=== PATIENT | female | born 2000 | race Caucasian/White ===

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

== ENCOUNTER 2021-02-07 16:54 | Emergency (ER) | payer OTHER ==
[~2021-02-07] VITALS: Ht 157.5 cm; Wt 115.7 kg
[2021-02-07 17:26] VITALS: Ht 157.5 cm; Wt 115.7 kg
[2021-02-07 18:12] LABS: BASOPHIL % 0.8 % (0.2-1.3); PLATELET COUNT 205 x10^3mcL (179-408)
[2021-02-07 18:14] LABS: RED CELL DISTRIBUTION WIDTH 14.6 % (12.3-17.7)
[2021-02-07 18:15] LABS: rbc morphology (normal/abnorm) NORMAL (NORMAL)
[2021-02-07 18:19] LABS: CALCIUM 9.3 mg/dL (8.5-10.1); CARBON DIOXIDE 26.5 mmol/L (21-32); CHLORIDE SERUM 104 mmol/L (98-107); CREATININE SERUM 0.6 mg/dL (0.6-1.0); GFR1 > 60 mL/min; GLUCOSE SERUM 98 mg/dL (74-106); SODIUM SERUM 140 mmol/L (136-145)
[2021-02-07 18:24] LABS: ALBUMIN 3.7 g/dL (3.4-5.0); ALKALINE PHOSPHATASE 111 U/L (46-116); ALT/SGPT 22 U/L (14-59); AST/SGOT 11 U/L (15-37); BILIRUBIN TOTAL 0.3 mg/dL (0.20-1.00); LIPASE 96 IU/L (73-393); TOTAL PROTEIN, SERUM 7.7 g/dL (6.4-8.2)
[2021-02-07] MEDS ORDERED: IBU600 M2 PO (19:17)
[2021-02-07] MEDS ORDERED: ONDANSETRON4 M3 PO (19:17)
[2021-02-07 19:32] VITALS: BP 120/75
== END 2021-02-07 19:33 | disposition home or self-care (01) ==
LOC: ED 16:54
PROVIDERS: Emergency Medicine
DX: I88.0 Nonspecific mesenteric lymphadenitis (principal); N83.201 Unspecified ovarian cyst, right side
CPT/HCPCS: J2270; J2405; J7030